=== PATIENT | male | born 1945 | race Caucasian/White ===

== ENCOUNTER 2023-12-16 10:09 | Outpatient (CLI) | payer MEDICARE | END 2023-12-16 10:10 | disposition home or self-care (01) | LOC: CSHRAD 10:09 | PROVIDERS: ATTEND Family Medicine Sports Medicine | DX: M54.2 Cervicalgia (principal); M47.812 Spondylosis without myelopathy or radiculopathy, cervical region | CPT/HCPCS: 72040 ==

== ENCOUNTER 2025-07-17 13:59 | Outpatient (CLI) | payer MEDICARE | END 2025-07-17 14:00 | disposition home or self-care (01) | LOC: CSHRAD 13:59 | DX: R05.1 Acute cough (principal); J18.9 Pneumonia, unspecified organism | CPT/HCPCS: 71046 ==